=== PATIENT | male | born 1990 | race Asian ===

== ENCOUNTER 2021-10-21 14:33 | Emergency (ER) | payer OTHER ==
[~2021-10-21] VITALS: Ht 162.6 cm; Wt 63.6 kg
[2021-10-21 14:46] VITALS: TEMP 97.5
[2021-10-21 15:52] LABS: BASO % 0.1 % (0.0-2.0); EOS % 0.2 % (0.0-4.0); GRAN # 7.7 K/mm3 (1.4-6.5); GRAN % 84.2 % (42.2-75.2); HEMOGLOBIN 11.1 g/dl (13.5-18.0); LYMPH # 1.1 K/mm3 (1.2-3.4); LYMPH % 11.9 % (20.0-51.0); MEAN CELL VOLUME 63 fl (80.0-100.0); MEAN CORPUSCULAR HEMOGLOBIN 20 pg (27-31); MEAN CORPUSCULAR HGB CONC 32 g/dl (33.0-37.0); MEAN PLATELET VOLUME 10.7 fl (7.4-10.4); MONO # 0.3 K/mm3 (0.1-0.6); MONO % 3.2 % (1.7-9.3); PLATELET COUNT 275 K/mm3 (130-400); RED BLOOD COUNT 5.54 M/mm3 (4.20-5.60); REDCELL DISTRIBUTION WIDTH-CV 14.6 % (11.5-14.5)
[2021-10-21 15:54] LABS: HEMATOCRIT 35.1 % (42.0-52.0)
[2021-10-21 16:08] LABS: ALBUMIN 4.4 gm/dL (3.5-5.0); CALCIUM 8.8 mg/dL (8.4-10.2); CREATININE, serum 0.71 mg/dL (0.72-1.25); POTASSIUM 4.2 mmol/L (3.5-4.5); TOTAL PROTEIN 7.7 gm/dL (6.2-8.1)
[2021-10-21 17:45] VITALS: BP 109/72; PULSE 85
== END 2021-10-21 17:48 | disposition home or self-care (01) ==
LOC: COL.ER 14:33
PROVIDERS: Nurse Practitioner
DX: T67.5XXA Heat exhaustion, unspecified, initial encounter (principal)
CPT/HCPCS: J1885; J2405; J7030